=== PATIENT | male | born 1965 | race Caucasian/White ===

== ENCOUNTER 2024-09-18 12:33 | Outpatient (CLI) | payer MEDICARE | END 2024-09-18 23:59 | disposition home or self-care (01) | LOC: MRI 12:33 | PROVIDERS: ATTEND Pediatrics Sports Medicine | DX: M16.12 Unilateral primary osteoarthritis, left hip (principal); M87.88 Other osteonecrosis, other site; M25.552 Pain in left hip | CPT/HCPCS: 73721 ==